=== PATIENT | female | born 1965 | race Caucasian/White ===

== ENCOUNTER 2022-03-03 19:13 | Emergency (ER) | payer MEDICAID ==
[~2022-03-03] VITALS: Ht 157.5 cm; Wt 64.9 kg
[2022-03-03 19:23] VITALS: BP 120/84
--- NOTE | 2022-03-03 19:27 | NUR ---
PT IN RESTROOM FOR URINE SPECIMEN COLLECTION.
--- NOTE | 2022-03-03 19:28 | NUR ---
PT TAKEN TO BED 05.
[2022-03-03] MEDS ORDERED: KETOROLAC 60 MG/2 ML VIAL IM ONE (20:25)
[2022-03-03] MEDS ORDERED: ONDANSETRON 4 MG TAB PO ONE (20:25)
--- NOTE | 2022-03-03 22:00 | NUR ---
57 Y/O F BIB SELF FOR LUQ PAIN 06/07 THAT RADIATES TO BACK X2 MONTHS. REPORTS NAUSEA. PT DENIES F/V/D/COUGH/SOB. PT IS A&0X4, AMBULATORY WITH STEADY AND EVEN GAIT
[2022-03-03] MEDS ORDERED: OMEP40EC23 PO (22:08)
[2022-03-03] MEDS ORDERED: ACET-8386 PO (22:08)
[2022-03-03] MEDS ORDERED: ONDA8TAB87 PO (22:08)
[2022-03-03] MEDS ORDERED: IBUP-2213 PO (22:08)
[2022-03-03 22:32] VITALS: BP 122/86
--- NOTE | 2022-03-03 22:32 | NUR ---
Patient discharged with v/s stable. Written and verbal after care instructions given and explained. Patient alert, oriented and verbalized understanding of instructions. Ambulatory with steady gait. All questions addressed prior to discharge. ID band removed. Patient advised to follow up with PMD. Rx of HYDROCODON 5-325,IBUPROFEN. PRILOSEC, ZOFRAN given. Opportunity to ask questions provided and answered.
--- NOTE | 2022-03-03 22:56 | NUR ---
The patient's care was reviewed and supervised by Moriah Jean RN.
== END 2022-03-03 22:56 | disposition home or self-care (01) ==
LOC: MED 19:13
DX: R10.32 Left lower quadrant pain (principal); R11.0 Nausea; J45.909 Unspecified asthma, uncomplicated; I10 Essential (primary) hypertension
CPT/HCPCS: 81002; 81025; 99283; J1885; Q0162

== ENCOUNTER 2022-11-19 12:49 | Emergency (ER) | payer MEDICAID, OTHER ==
[~2022-11-19] VITALS: Ht 160 cm; Wt 62.6 kg
[~2022-11-19 12:49] MED LIST: ACET-8905 PO; IBUP-2213 PO; OMEP40EC23 PO; ONDA8TAB87 PO
[2022-11-19 13:08] VITALS: BP 145/75
[2022-11-19] MEDS ORDERED: ALBUTEROL SULFATE/IPRATROPIU 3 ML SOL IH ONE (13:45)
[2022-11-19] MEDS ORDERED: predniSONE 20 MG TAB PO ONE (13:45)
[2022-11-19 14:20] LABS: BASOPHILS % (AUTO) 0.5 % (0.0-2.0); EOSINOPHILS # (AUTO) 0.2 K/uL (0-0.4); EOSINOPHILS % (AUTO) 3.6 % (0.0-4.0); HEMATOCRIT 40.8 % (36-48); HEMOGLOBIN 13.7 g/dL (12.0-16.0); LYMPHOCYTES % (AUTO) 16.8 % (20.5-51.1); MEAN CORPUSCULAR HEMOGLOBIN 29 pg (27-31); MEAN CORPUSCULAR HGB CONC 34 g/dL (33-37); MEAN CORPUSCULAR VOLUME 87.3 fL (80-94); MONOCYTES # (AUTO) 0.5 K/uL (0.8-1.0); NEUTROPHILS % (AUTO) 70.1 % (42.2-75.2); PLATELET COUNT (AUTO) 260 K/uL (140-450); RED BLOOD CELL COUNT(AUTO) 4.67 MIL/uL (4.20-5.40); RED CELL DISTRIBUTION WIDTH 13.3 % (11.6-13.7); WHITE BLOOD COUNT (AUTO) 5.7 K/uL (4.8-10.8)
--- NOTE | 2022-11-19 14:21 | NUR ---
X-Ray at bedside.
--- NOTE | 2022-11-19 14:44 | NUR ---
PT STATES SHE FEELS THE SAME AFTER ALBUTEROL TX
[2022-11-19 14:50] LABS: ANION GAP 12.7 (8-16); CARBON DIOXIDE 28.6 mmol/L (21-32); CREATININE 0.8 mg/dL (0.6-1.3); POTASSIUM 4.3 mmol/L (3.5-5.1)
[2022-11-19 15:03] LABS: ALBUMIN 4.1 g/dL (3.4-5.0); TOTAL BILIRUBIN 0.3 mg/dL (0.0-1.0)
--- NOTE | 2022-11-19 15:12 | NUR ---
Dr. Atkinson re-evaluating patient at bedside.
[2022-11-19] MEDS ORDERED: ACETAMINOPHEN EXTRA STRENGTH 500 MG TAB PO ONE (15:15)
[2022-11-19] MEDS ORDERED: PRED20TA5 PO (15:15)
[2022-11-19] MEDS ORDERED: ALBU0.0912 INH (15:15)
[2022-11-19] MEDS ORDERED: SUD30 PO (15:15)
[2022-11-19] MEDS ORDERED: MUC600 PO (15:15)
--- NOTE | 2022-11-19 15:15 | NUR ---
57 y/o female bib self with c/o SOB x 3 days. Patient uses inhaler at home with minimal relief. Patient states she was seen by PCP. Patient is also reporting a non-productive cough. Denies any fever or chills. Medical History: HTN, Asthma NKDA
[2022-11-19 16:11] VITALS: BP 111/71
--- NOTE | 2022-11-19 16:11 | NUR ---
Patient discharged with v/s stable. Written and verbal after care instructions given. Patient alert, oriented and verbalized understanding of instructions. Ambulatory with steady gait. All questions addressed prior to discharge. ID band removed. Patient advised to follow up with PMD. Rx of Proventil, Mucinex, Deltasone and Sudafed given. Opportunity to ask questions provided and answered. WORK NOTE HANDED TO PATIENT.
--- NOTE | 2022-11-19 16:12 | NUR ---
The patient's care was reviewed and supervised by Jane Calvillo, RN, RN.
== END 2022-11-19 16:11 | disposition home or self-care (01) ==
LOC: MED 12:49
DX: R05.9 Cough, unspecified (principal); Z20.822 Contact with and (suspected) exposure to COVID-19; R06.2 Wheezing; J45.909 Unspecified asthma, uncomplicated; I10 Essential (primary) hypertension; Z79.899 Other long term (current) drug therapy
CPT/HCPCS: 36415; 71045; 80053; 83880; 84484; 85025; 87426; 87804; 93005; 94640; 99285; J7512; Q0092

== ENCOUNTER 2023-04-21 10:24 | Emergency (ER) | payer OTHER ==
[~2023-04-21] VITALS: Ht 165.1 cm; Wt 64.4 kg
[~2023-04-21 10:24] MED LIST changes: +ALBU0.0912 INH; +MUC600 PO; +PRED20TA5 PO; +SUD30 PO
[2023-04-21 10:34] VITALS: BP 139/85; PULSE 84; RESP 20; TEMP 97; O2SAT 97
--- NOTE | 2023-04-21 10:45 | NUR ---
PATIENT PRESENTS TO ED WITH NECK PAIN. PT STATES 1 WEEK. PT STATES SHE HAS MILD NAUSEA.DENIES V/D; SKIN IS PINK/WARM/DRY; AAOX4 WITH EVEN AND STEADY GAIT; LUNGS CLEAR BL; HR EVEN AND REGULAR; PT DENIES ANY FEVER, CP, SOB, OR COUGH AT THIS TIME; PATIENT STATES PAIN OF 9/10 AT THIS TIME; VSS; PATIENT POSITIONED FOR COMFORT; HOB ELEVATED; BEDRAILS UP X2; BED DOWN. ER MD MADE AWARE OF PT STATUS. PT STATES SHES TAKING NAPROXIN PAIN IS NOT ELIVIATED
[2023-04-21] MEDS ORDERED: KETOROLAC 30 MG/ML VIAL IM ONE (11:00)
[2023-04-21] MEDS ORDERED: KETOROLAC 15 MG/ML VIAL IVP ONE ×2 (11:05→12:10)
--- NOTE | 2023-04-21 11:18 | NUR ---
PT HAS HAD A 20 G LEFT AC IV PLACED. PT HAS BEEN MEDICATED PER PROVIDERS ORDERS. PLAN OF CARE EXPLAINED AND PT STATES UNDERSTANDING. PT WILL BE SENT TO XRAY.
[2023-04-21 11:20] LABS: BASOPHILS % (AUTO) 0.5 % (0.0-2.0); EOSINOPHILS # (AUTO) 0.1 K/uL (0-0.4); EOSINOPHILS % (AUTO) 2.3 % (0.0-4.0); HEMATOCRIT 40.4 % (36-48); HEMOGLOBIN 13.5 g/dL (12.0-16.0); LYMPHOCYTES # (AUTO) 1.6 K/uL (2.5-16.5); LYMPHOCYTES % (AUTO) 27.9 % (20.5-51.1); MEAN CORPUSCULAR HEMOGLOBIN 29 pg (27-31); MEAN CORPUSCULAR HGB CONC 33 g/dL (33-37); MEAN CORPUSCULAR VOLUME 87.6 fL (80-94); MONOCYTES # (AUTO) 0.4 K/uL (0.8-1.0); MONOCYTES % (AUTO) 7.4 % (1.7-9.3); NEUTROPHILS # (AUTO) 3.7 K/uL (1.8-7.7); NEUTROPHILS % (AUTO) 61.9 % (42.2-75.2); PLATELET COUNT (AUTO) 263 K/uL (140-450); RED BLOOD CELL COUNT(AUTO) 4.62 MIL/uL (4.20-5.40); RED CELL DISTRIBUTION WIDTH 13.6 % (11.6-13.7); WHITE BLOOD COUNT (AUTO) 5.9 K/uL (4.8-10.8)
[2023-04-21 11:39] LABS: ALBUMIN 3.7 g/dL (3.4-5.0); ANION GAP 13.6 (8-16); ASPARTATE AMINOTRANSFERASE 28 U/L (15-37); CARBON DIOXIDE 25.4 mmol/L (21-32); CHLORIDE 104 mmol/L (98-107); CREATININE 0.7 mg/dL (0.6-1.3); GFR ARICAN-AMERICAN 111 mL/min (>90); GLUCOSE 114 mg/dL (74-106); SODIUM SERUM 139 mmol/L (136-145); TOTAL BILIRUBIN 0.4 mg/dL (0.0-1.0); UREA NITROGEN, BLOOD 14 mg/dL (7-18)
--- NOTE | 2023-04-21 12:14 | NUR ---
Pt back from ultrasound. pt sitting resting hob. pt states pain is a 6 and its much better from before.
[2023-04-21] MEDS ORDERED: LID5T TP (12:21)
[2023-04-21] MEDS ORDERED: ACET-8905 PO (12:21)
--- NOTE | 2023-04-21 13:13 | NUR ---
Pt states shes still in pain, per Providers orders second round of toradal to be given for pain.
--- NOTE | 2023-04-21 13:14 | NUR ---
Patient discharged with v/s stable. Written and verbal after care instructions given and explained. Patient verbalized understanding. Ambulatory with steady gait. All questions addressed prior to discharge. Advised to follow up with PM. Pt has been placed in a sling on left side for more support. Pt has been medicated will eval for 15 for adverse reactions before discharging pt.
[2023-04-21 13:17] VITALS: BP 101/64; PULSE 53; RESP 18; TEMP 97.8; O2SAT 95
--- NOTE | 2023-04-21 13:43 | NUR ---
Pt was placed in a sling on the left side no signs of discomfort. Pt had no adverse reactions to toradal medication. Pts vitals record and stable will discharge pt.
== END 2023-04-21 13:30 | disposition home or self-care (01) ==
LOC: MED 10:24
DX: S16.1XXA Strain of muscle, fascia and tendon at neck level, initial encounter (principal); M25.512 Pain in left shoulder; J45.909 Unspecified asthma, uncomplicated; I10 Essential (primary) hypertension; Z79.899 Other long term (current) drug therapy; X58.XXXA Exposure to other specified factors, initial encounter; Y93.89 Activity, other specified; Y92.89 Other specified places as the place of occurrence of the external cause; Y99.8 Other external cause status
CPT/HCPCS: 36415; 71045; 72040; 80053; 84484; 85025; 93005; 96372; 96374; 96375; 99285; J1885

== ENCOUNTER 2023-06-20 08:37 | Day surgery (SDC) | payer OTHER ==
[~2023-06-20 08:37] MED LIST changes: +LID5T TP
[2023-06-20] MEDS ORDERED: diphenhydrAMINE 50 MG/ML VIAL ONE (09:35)
[2023-06-20] MEDS ORDERED: fentaNYL citrate 0.05 MG/ML VIAL ONE (09:36)
[2023-06-20] MEDS ORDERED: MIDAZOLAM 5 MG/5 ML VIAL ONE (09:36)
[2023-06-20] MEDS ORDERED: LIDOCAINE 2% 100 MG/5 ML UJET TP ONE (09:36)
[2023-06-20] MEDS ORDERED: fentaNYL citrate 0.05 MG/ML VIAL IVP ONE (10:40)
[2023-06-20] MEDS ORDERED: MIDAZOLAM 2 MG/2 ML VIAL IVP ONE (10:40)
== END 2023-06-20 11:10 | disposition home or self-care (01) ==
LOC: MOR 08:37 → MMU 08:39 → MOR 11:10
PROVIDERS: ATTEND Internal Medicine Gastroenterology
DX: Z12.11 Encounter for screening for malignant neoplasm of colon (principal); K63.5 Polyp of colon; I10 Essential (primary) hypertension; E78.5 Hyperlipidemia, unspecified; J45.909 Unspecified asthma, uncomplicated; Z90.710 Acquired absence of both cervix and uterus; Z90.49 Acquired absence of other specified parts of digestive tract; Z79.899 Other long term (current) drug therapy
CPT/HCPCS: 45385; J2250; J3010; J1200

== ENCOUNTER 2024-01-11 15:16 | Emergency (ER) | payer OTHER ==
[~2024-01-11] VITALS: Ht 154.9 cm; Wt 62.6 kg
[2024-01-11 15:33] VITALS: BP 119/78; PULSE 80; RESP 19; TEMP 98.4; O2SAT 98
[2024-01-11 15:46] VITALS: O2SAT 98
[2024-01-11] MEDS: ASPIRIN 325 MG TAB PO ONE (16:30)
[2024-01-11] MEDS: ACETAMINOPHEN 325 MG TAB PO ONE (16:30)
[2024-01-11] MEDS: ONDANSETRON 4 MG ODT PO ONE (16:31)
[2024-01-11 17:00] LABS: BASOPHILS % (AUTO) 0.3 % (0.0-2.0); EOSINOPHILS % (AUTO) 0.4 % (0.0-4.0); HEMATOCRIT 39.4 % (36-48); HEMOGLOBIN 13.7 g/dL (12.0-16.0); LYMPHOCYTES # (AUTO) 1.2 K/uL (2.5-16.5); LYMPHOCYTES % (AUTO) 14.4 % (20.5-51.1); MEAN CORPUSCULAR HEMOGLOBIN 31 pg (27-31); MEAN CORPUSCULAR HGB CONC 35 g/dL (33-37); MEAN CORPUSCULAR VOLUME 88.2 fL (80-94); MONOCYTES # (AUTO) 0.3 K/uL (0.8-1.0); MONOCYTES % (AUTO) 4.3 % (1.7-9.3); NEUTROPHILS # (AUTO) 6.5 K/uL (1.8-7.7); NEUTROPHILS % (AUTO) 80.6 % (42.2-75.2); PLATELET COUNT (AUTO) 285 K/uL (140-450); RED BLOOD CELL COUNT(AUTO) 4.46 MIL/uL (4.20-5.40)
[2024-01-11 17:26] LABS: ANION GAP 13.8 (8-16); CALCIUM 8.7 mg/dL (8.5-10.1); CARBON DIOXIDE 25.6 mmol/L (21-32); POTASSIUM 4.4 mmol/L (3.5-5.1)
[2024-01-11 17:30] LABS: ALANINE AMINOTRANSFERASE 46 U/L (12-78); ALBUMIN 3.7 g/dL (3.4-5.0); ALKALINE PHOSPHATASE 72 U/L (50-136); ASPARTATE AMINOTRANSFERASE 33 U/L (15-37); BILIRUBIN,DIRECT 0.1 mg/dL (0.0-0.3); LIPASE 47 U/L (16-77); TOTAL BILIRUBIN 0.6 mg/dL (0.0-1.0); TOTAL PROTEIN, SERUM 7.5 g/dL (6.4-8.2)
[2024-01-11] MEDS: KETOROLAC 30 MG/ML VIAL IM ONE (18:23)
[2024-01-11 18:46] VITALS: O2SAT 96
[2024-01-11 19:29] VITALS: O2SAT 95
[2024-01-11] MEDS ORDERED: OMEP40EC23 PO (20:50)
[2024-01-11 20:59] VITALS: BP 112/67; PULSE 65; RESP 17; TEMP 98.2; O2SAT 99
== END 2024-01-11 20:59 | disposition home or self-care (01) ==
LOC: MED 15:16
DX: R07.9 Chest pain, unspecified (principal); R10.12 Left upper quadrant pain; J45.909 Unspecified asthma, uncomplicated; I10 Essential (primary) hypertension; Z79.899 Other long term (current) drug therapy
CPT/HCPCS: 36415; 71045; 80048; 80076; 81002; 81025; 83690; 83880; 84484; 85025; 93005; 96372; 99285; J1885; Q0162